=== PATIENT | female | born 1940 | race Caucasian/White ===

== ENCOUNTER 2022-08-02 20:43 | Emergency (ER) | payer MEDICARE ==
[~2022-08-02] VITALS: Ht 157.5 cm; Wt 86.2 kg
--- NOTE | 2022-08-02 20:49 | NUR ---
[facility] TO BED #9
[2022-08-02 20:55] VITALS: BP 167/79
--- NOTE | 2022-08-02 21:00 | NUR ---
URINE COLLECTED AND SENT
--- NOTE | 2022-08-02 21:06 | NUR ---
Received patient to ER w/ c/o n/v and abd pain pain onset since 1600 today. Patient states feels need to have a BM but has not yet went "poop" since yesterday but only a little bit. Introduced self to patient, positioned for comfort. Bed to low position sr up, continue to monitor.
--- NOTE | 2022-08-02 21:15 | NUR ---
Patient resting comfortably at this time in no acute distress. Bed to low position sr up, continue to monitor.
[2022-08-02 21:37] LABS: BILIRUBIN,URINE NEGATIVE (NEGATIVE); BLOOD, URINE NEGATIVE (NEGATIVE); COLOR,URINE YELLOW (YELLOW); LEUKOCYTE ESTERASE ,URINE 2+ (NEGATIVE); NITRITE, URINE NEGATIVE (NEGATIVE); PH,URINE 6.5 (5.0-9.0); UGLUCOSE NEGATIVE (NEGATIVE)
[2022-08-02 21:41] LABS: APPEARANCE,URINE HAZY (CLEAR)
[2022-08-02] MEDS ORDERED: diphenhydrAMINE 50 MG/ML VIAL IVP ONE (21:55)
--- NOTE | 2022-08-02 21:59 | NUR ---
PT TAKEN TO CT
--- NOTE | 2022-08-02 21:59 | NUR ---
patient to ct scan via gurney [facility] w/ software development project manager.
[2022-08-02 22:07] LABS: ALBUMIN 3.2 g/dL (3.4-5.0); ANION GAP 11.7 (8-16); ASPARTATE AMINOTRANSFERASE 21 U/L (15-37); BASOPHILS # (AUTO) 0.1 K/uL (0.00-0.22); BASOPHILS % (AUTO) 0.4 % (0.0-2.0); CARBON DIOXIDE 27.5 mmol/L (21-32); CHLORIDE 103 mmol/L (98-107); CREATININE 0.9 mg/dL (0.6-1.3); EOSINOPHILS # (AUTO) 0.2 K/uL (0-0.4); EOSINOPHILS % (AUTO) 1.8 % (0.0-4.0); GLUCOSE 108 mg/dL (74-106); HEMATOCRIT 39.2 % (36-48); HEMOGLOBIN 13.4 g/dL (12.0-16.0); LYMPHOCYTES # (AUTO) 1.2 K/uL (2.5-16.5); LYMPHOCYTES % (AUTO) 9.3 % (20.5-51.1); MEAN CORPUSCULAR HEMOGLOBIN 33 pg (27-31); MEAN CORPUSCULAR HGB CONC 34 g/dL (33-37); MEAN CORPUSCULAR VOLUME 95.3 fL (80-94); MONOCYTES # (AUTO) 0.9 K/uL (0.8-1.0); MONOCYTES % (AUTO) 6.5 % (1.7-9.3); NEUTROPHILS # (AUTO) 10.7 K/uL (1.8-7.7); PLATELET COUNT (AUTO) 191 K/uL (140-450); POTASSIUM 4.2 mmol/L (3.5-5.1); RED BLOOD CELL COUNT(AUTO) 4.12 MIL/uL (4.20-5.40); RED CELL DISTRIBUTION WIDTH 13.3 % (11.6-13.7); SODIUM SERUM 138 mmol/L (136-145); TOTAL BILIRUBIN 0.4 mg/dL (0.0-1.0); UREA NITROGEN, BLOOD 16 mg/dL (7-18)
--- NOTE | 2022-08-02 22:08 | NUR ---
PT RETURN FROM CT
[2022-08-02 22:12] LABS: RBC,URINE NONE SEEN /HPF (0-5)
--- NOTE | 2022-08-02 22:40 | NUR ---
Patient medicated as ordered w/ benadryl 50mg ivp. Iv site to RAC patent and intact. Bed to low position sr up. Continue to monitor.
[2022-08-03] MEDS ORDERED: PIPERACILLIN/TAZOBACTAM 3.375 GM in DEXTROSE 5% 50 ML IV ONE (00:25)
[2022-08-03] MEDS ORDERED: PIPERACILLIN/TAZOBACTAM 3.375 GM VIAL IV ONE (00:33)
--- NOTE | 2022-08-03 00:43 | NUR ---
patient started on iv abx zosyn 3.375gms ivpb as ordered. Iv site to right AC patent and intact. Bed to low position sr up. Patient resting comfortably at this time Will observe for any adverse reaction.
--- NOTE | 2022-08-03 01:15 | NUR ---
No adverse reaction noted to iv abx. Iv site patent and intact. Bed to low position sr up, continue to monitor.
--- NOTE | 2022-08-03 02:21 | NUR ---
Patient resting comfortably at this time in no acute distress. Bed to low position sr up, continue to monitor. Awaiting transfer to [facility].
--- NOTE | 2022-08-03 02:32 | NUR ---
Patient : Shawn Scruggs [phone]
--- NOTE | 2022-08-03 04:41 | NUR ---
No change from previous assessment, patient resting comfortably at this time in no acute distress. Bed to low position sr up. continue to monitor.
--- NOTE | 2022-08-03 05:20 | NUR ---
Patient accepted for transfer to [facility] by MD Luba Woodall. Number for report [phone]. ETA for [facility] is [id number]
--- NOTE | 2022-08-03 05:25 | NUR ---
Report called and given report to Nayana PAIZ for [facility]. Patient informed of admission who then verbalized understanding of reason for transfer. Will contact patient spouse.
--- NOTE | 2022-08-03 05:51 | NUR ---
[facility] TRANSPORT AT BEDSIDE
[2022-08-03 06:02] VITALS: BP 133/66
--- NOTE | 2022-08-03 06:02 | NUR ---
Report given [facility] Lead [employer] Analyst Ar[employer].
--- NOTE | 2022-08-03 06:10 | NUR ---
PT TAKEN BY [facility] TO [facility]
== END 2022-08-03 06:10 | disposition short-term general hospital (02) ==
LOC: MED 20:43
DX: K59.00 Constipation, unspecified (principal); K50.90 Crohn's disease, unspecified, without complications; Z20.822 Contact with and (suspected) exposure to COVID-19; I10 Essential (primary) hypertension; E03.9 Hypothyroidism, unspecified; Z98.890 Other specified postprocedural states; Z88.8 Allergy status to other drugs, medicaments and biological substances; Z88.0 Allergy status to penicillin
CPT/HCPCS: 36415; 74176; 80053; 81001; 83605; 85025; 87086; 87426; 96365; 96375; 99285; J1200; J2543